=== PATIENT | female | born 1945 | race Caucasian/White ===

== ENCOUNTER → 2017-05-07 | Outpatient (CLI) | payer MEDICARE, OTHER ==
[~2017-05-07] MED LIST: ACUPRIL PO; BELLTAB15 PO; CHOL10006 PO; EZET10TA38 PO; FOLI1TAB6 PO; LEVO50TA53 PO; OMEGA 3 PO; OYST500T29 PO; TRAM50TA2 PO; VITAMIN PO
== END | disposition home or self-care (01) ==
LOC: Rad HDHVI 11:16
PROVIDERS: ATTEND Internal Medicine Cardiovascular Disease
DX: I82.403 Acute embolism and thrombosis of unspecified deep veins of lower extremity, bilateral (principal)
CPT/HCPCS: 93970

== ENCOUNTER → 2017-07-02 | Outpatient (CLI) | payer MEDICARE, OTHER ==
[2017-07-02 12:12] LABS: Urine Bilirubin Negative (Negative); Urine Blood Negative /uL (Negative); Urine Color Yellow (Yellow); Urine Glucose Normal (Normal); Urine Ketone Negative (Negative); Urine Nitrite Negative (Negative); Urine Urobilinogen Normal (Negative)
[2017-07-02 12:44] LABS: Albumin 3.9 g/dL (3.4-5.0); Alkaline Phosphatase 78 U/L (45-117); Anion Gap 14 (5-15); Aspartate Aminotransferase 22 U/L (15-37); BUN/Creatinine Ratio 23.3; Bilirubin, Direct < 0.1 mg/dL (0-0.2); Bilirubin, Total 0.3 mg/dL (0.2-1.0); Blood Urea Nitrogen 24 mg/dL (7-18); Calcium 9.8 mg/dL (8.5-10.1); Carbon Dioxide 28 mmol/L (21-32); Chloride 103 mmol/L (98-107); Cholesterol 133 mg/dL (< 200); GFR African American 68 mL/min; GFR Non-African American 56 mL/min; Glucose 119 mg/dL (74-106); HDL Cholesterol 39 mg/dL (40-59); LDL Cholesterol 84 mg/dL (< 100); Sodium 145 mmol/L (136-145); Total Protein 7.8 g/dL (6.4-8.2); Triglycerides 149 mg/dL (< 150)
[2017-07-02 12:47] LABS: Basophils # (auto) 0 uL; Basophils % (auto) 0.4 % (0.0-2.0); CONDITION Y; Eosinophils # (auto) 0.2 uL; Eosinophils % (auto) 2.4 % (0.0-7.0); Hemoglobin 15.1 g/dL (12.2-16.2); Lymphocytes # (auto) 1.8 uL; Lymphocytes % (auto) 22.2 % (10.0-50.0); Mean Corpuscular Hemoglobin 31.4 pg (28.0-32.0); Mean Corpuscular Hgb Conc. 33.6 g/dL (32.0-36.0); Mean Corpuscular Volume 93.3 fL (80.0-100.0); Mean Platelet Volume 10.4 fL (7.4-10.4); Monocytes # (auto) 0.5 uL; Monocytes % (auto) 6.6 % (0.0-12.0); Neutrophils # (auto) 5.7 uL; Neutrophils % (auto) 68.4 % (37.0-80.0); Platelet Count (auto) 216 10^3/uL (140-450); Red Cell Distribution Width 14.3 % (11.6-16.0); White Blood Cell 8.3 10^3/uL (4.4-10.8)
[2017-07-02 14:12] LABS: Potassium 5.7 mmol/L (3.5-5.1)
== END | disposition home or self-care (01) ==
LOC: LAB 08:35
PROVIDERS: ATTEND Internal Medicine Cardiovascular Disease
DX: I10 Essential (primary) hypertension (principal); E78.00 Pure hypercholesterolemia, unspecified; K74.1 Hepatic sclerosis; E11.9 Type 2 diabetes mellitus without complications; E03.9 Hypothyroidism, unspecified; D64.9 Anemia, unspecified; E55.9 Vitamin D deficiency, unspecified; N39.0 Urinary tract infection, site not specified
CPT/HCPCS: 36415; 80048; 80061; 80076; 81003; 82306; 83036; 84443; 85025; 87086

== ENCOUNTER → 2017-07-03 | Outpatient (CLI) | payer MEDICARE, OTHER ==
[~2017-07-03] VITALS: Ht 33 cm; Wt 0.5 kg
[~2017-07-03] MED LIST changes: +SODIUM POLYSTYRENE SULF 15GM/60ML SUSP ONE; +SODIUM POLYSTYRENE SULF 15GM/60ML SUSP PO ONE
[2017-07-03 09:00] VITALS: BP 148/56
[2017-07-03 10:25] VITALS: BP 141/67
== END | disposition home or self-care (01) ==
LOC: LAB 08:17
PROVIDERS: ATTEND Internal Medicine Cardiovascular Disease
DX: E87.5 Hyperkalemia (principal)
CPT/HCPCS: 36415; 84132; G0463

== ENCOUNTER → 2017-07-05 | Outpatient (CLI) | payer MEDICARE, OTHER ==
[~2017-07-05] MED LIST changes: -SODIUM POLYSTYRENE SULF 15GM/60ML SUSP ONE; -SODIUM POLYSTYRENE SULF 15GM/60ML SUSP PO ONE
[2017-07-05 08:10] VITALS: BP 143/72
[2017-07-05 10:15] VITALS: BP 135/75
== END | disposition home or self-care (01) ==
LOC: CHF HDHVI 08:09
PROVIDERS: ATTEND Internal Medicine Cardiovascular Disease
DX: E87.5 Hyperkalemia (principal)
CPT/HCPCS: 36415; 84132; G0463

== ENCOUNTER → 2017-07-09 | Outpatient (CLI) | payer MEDICARE, OTHER ==
[2017-07-09 10:25] VITALS: BP 123/66
[2017-07-09 10:45] VITALS: BP 123/66
== END | disposition home or self-care (01) ==
LOC: CHF HDHVI 10:45
PROVIDERS: ATTEND Internal Medicine Cardiovascular Disease
DX: E78.5 Hyperlipidemia, unspecified (principal); I11.0 Hypertensive heart disease with heart failure; I50.9 Heart failure, unspecified; N39.0 Urinary tract infection, site not specified
CPT/HCPCS: 36415; 84132; G0463

== ENCOUNTER → 2017-08-16 | Outpatient (CLI) | payer MEDICARE, OTHER ==
[2017-08-16 13:20] LABS: BUN/Creatinine Ratio 23.2; Potassium 3.9 mmol/L (3.5-5.1)
== END | disposition home or self-care (01) ==
LOC: LAB 08:52
PROVIDERS: ATTEND Internal Medicine Cardiovascular Disease
DX: I10 Essential (primary) hypertension (principal)
CPT/HCPCS: 36415; 80048

== ENCOUNTER → 2017-12-03 | Outpatient (CLI) | payer MEDICARE, OTHER ==
[~2017-12-03] MED LIST changes: -BELLTAB15 PO; +PHEN-913 PO
[2017-12-03 16:46] LABS: Basophils # (auto) 0 uL; Basophils % (auto) 0.2 % (0.0-2.0); Eosinophils # (auto) 0.2 uL; Eosinophils % (auto) 2.1 % (0.0-7.0); Hematocrit 45.2 % (36.0-46.0); Hemoglobin 15.5 g/dL (12.2-16.2); Lymphocytes % (auto) 19.3 % (10.0-50.0); Mean Corpuscular Hgb Conc. 34.3 g/dL (32.0-36.0); Mean Corpuscular Volume 93.4 fL (80.0-100.0); Monocytes # (auto) 0.7 uL; Monocytes % (auto) 6.9 % (0.0-12.0); Neutrophils # (auto) 7.3 uL; Neutrophils % (auto) 71.5 % (37.0-80.0); Nucleated Red Blood Cells % 0.1 %; Platelet Count (auto) 203 10^3/uL (140-450); Red Blood Cells 4.84 10^6/uL (4.0-5.20); Red Cell Distribution Width 13.5 % (11.8-14.3); White Blood Cell 10.2 10^3/uL (4.4-10.8)
[2017-12-03 16:57] LABS: BUN/Creatinine Ratio 28.2; Potassium 3.9 mmol/L (3.5-5.1)
[2017-12-03 16:58] LABS: Calcium 9.3 mg/dL (8.5-10.1)
== END | disposition home or self-care (01) ==
LOC: LAB 15:20
PROVIDERS: ATTEND Internal Medicine Cardiovascular Disease
DX: D64.9 Anemia, unspecified (principal); D59.1 Other autoimmune hemolytic anemias; I10 Essential (primary) hypertension; E03.9 Hypothyroidism, unspecified; M05.9 Rheumatoid arthritis with rheumatoid factor, unspecified
CPT/HCPCS: 36415; 80048; 84443; 85025; 86038; 86431

== ENCOUNTER 2018-12-21 13:51 | Inpatient (IN) | payer MEDICARE, OTHER ==
[~2018-12-21] VITALS: Ht 157.5 cm; Wt 85.9 kg
[2018-12-21] MEDS ORDERED: ASPirin 81 mg TAB PO ONE (14:15)
[2018-12-21] MEDS ORDERED: SODIUM CHLORIDE 0.9% 1,000 ML IVB ONE (14:41)
[2018-12-21] MEDS ORDERED: cefTRIAXone 1GM/50ML D5W 50 ML IV ONE (14:45)
[2018-12-21 15:49] LABS: INR 0.98 (0.9-1.15); Partial Thromboplastin Time 27.1 sec (23.78-33.04); Prothrombin Time 10.5 sec (9.27-12.13)
[2018-12-21 16:01] LABS: Alanine Aminotransferase 96 U/L (13-56); Albumin 3.7 g/dL (3.4-5.0); Anion Gap 10 (5-15); Aspartate Aminotransferase 183 U/L (15-37); BUN/Creatinine Ratio 22.9; Blood Urea Nitrogen 19 mg/dL (7-18); Calcium 8.5 mg/dL (8.5-10.1); Carbon Dioxide 24 mmol/L (21-32); Chloride 104 mmol/L (98-107); GFR African American 86 mL/min; GFR Non-African American 71 mL/min; Glucose 129 mg/dL (74-106); Potassium 3.6 mmol/L (3.5-5.1); Sodium 138 mmol/L (136-145)
[2018-12-21 16:06] LABS: Alkaline Phosphatase 128 U/L (45-117); Bilirubin, Total 0.9 mg/dL (0.2-1.0); Total Protein 7.5 g/dL (6.4-8.2)
[2018-12-21 16:23] LABS: Basophils # (auto) 0 uL; Basophils % (auto) 0.2 % (0.0-2.0); Eosinophils # (auto) 0.1 uL; Eosinophils % (auto) 0.8 % (0.0-7.0); Hematocrit 42.9 % (36.0-46.0); Hemoglobin 14.8 g/dL (12.2-16.2); Lymphocytes # (auto) 1.4 uL; Lymphocytes % (auto) 15.4 % (10.0-50.0); Mean Corpuscular Hemoglobin 31.2 pg (28.0-32.0); Mean Corpuscular Hgb Conc. 34.5 g/dL (32.0-36.0); Mean Corpuscular Volume 90.4 fL (80.0-100.0); Monocytes # (auto) 0.8 uL; Monocytes % (auto) 8.8 % (0.0-12.0); Neutrophils # (auto) 6.8 uL; Neutrophils % (auto) 74.8 % (37.0-80.0); Platelet Count (auto) 208 10^3/uL (140-450); Red Blood Cells 4.74 10^6/uL (4.0-5.20); Red Cell Distribution Width 13.5 % (11.8-14.3); White Blood Cell 9.2 10^3/uL (4.4-10.8)
[2018-12-21] MEDS ORDERED: traMADol HCL 50 MG TAB PO PRN (17:00)
[2018-12-21] MEDS ORDERED: MORPHINE SULFATE 4 MG/ML SYR/VIAL IV PRN (17:00)
[2018-12-21] MEDS ORDERED: TEMAZEPAM 15 MG CAP PO PRN (17:00)
[2018-12-21] MEDS ORDERED: PROMETHAZINE HCL 25 MG/ML 1ML IV PRN (17:00)
[2018-12-21] MEDS ORDERED: LACTULOSE 20Gm/30ML SOLN PO PRN (17:00)
[2018-12-21] MEDS ORDERED: OSELTAMIVIR 30 MG CAP PO ONE (17:00)
[2018-12-21] MEDS ORDERED: NITROGLYCERIN 0.4 MG SL TAB SL PRN (17:00)
[2018-12-21] MEDS ORDERED: ALBUTEROL SULF 2.5 MG/0.5ML(0.5%) NEB SOLN NEB PRN (17:00)
[2018-12-21] MEDS ORDERED: LORazepam 0.5 MG TAB PO PRN (17:00)
[2018-12-21] MEDS ORDERED: AZITHROMYCIN 500MG/ 250ML 250 ML IV ONE (17:15)
[2018-12-21] MEDS: ALBUTEROL SULF 2.5 MG/0.5ML(0.5%) NEB SOLN NEB SCH (18:36)
[2018-12-21] MEDS: SODIUM CHLORIDE 0.9% 1,000 ML IV SCH (19:32)
[2018-12-21 20:27] VITALS: BP 138/69
--- NOTE | 2018-12-21 20:55 | NUR ---
Telemetry admit from ER JOSE M MELARA admitted to Telemetry unit after SBAR received. Patient oriented to GWENDOLYN MCQUEEN RN primary RN, unit, room, bed, and unit policies regarding patient care and visiting hours. Patient now on continuous telemetry monitoring, tele box # [id number] and telemetry reading on arrival to unit is SR. Patient placed on bedside oxygen, weighed by bedscale and encouraged to call if they need something. All questions and concerns addressed, patient verbalized understanding. Note:
[2018-12-21 21:33] LABS: Urine Bacteria NONE SEEN /hpf (None Seen); Urine Blood 1+ /uL (Negative); Urine WBC 4179 /hpf (0 - 5); Urine WBC Clumps PRESENT /hpf (None Seen)
[2018-12-21 22:00] VITALS: BP 105/62
[2018-12-21 22:17] VITALS: BP 105/65
[2018-12-22] MEDS: ALBUTEROL SULF 2.5 MG/0.5ML(0.5%) NEB SOLN NEB SCH ×4 (01:30→18:05)
[2018-12-22] MEDS ORDERED: ACET-1158 PO (04:42)
[2018-12-22] MEDS ORDERED: LEVEMIR SC (04:42)
[2018-12-22] MEDS ORDERED: FLUO0.05 EX (04:43)
[2018-12-22] MEDS ORDERED: ESOM40CA39 PO ×2 (04:43)
[2018-12-22] MEDS ORDERED: PRO625LQ GT (04:43)
[2018-12-22] MEDS ORDERED: DICL1GEL26 TOP (04:43)
[2018-12-22] MEDS ORDERED: METF-370 PO (04:43)
[2018-12-22] MEDS ORDERED: NATE60TA5 PO (04:43)
[2018-12-22] MEDS ORDERED: ASP81EC PO (04:43)
[2018-12-22] MEDS ORDERED: GLIM1TAB2 PO (04:43)
[2018-12-22] MEDS ORDERED: IBUP600T27 PO (04:43)
[2018-12-22 05:09] VITALS: BP 129/63
[2018-12-22] MEDS: SODIUM CHLORIDE 0.9% 1,000 ML IV SCH (05:17)
[2018-12-22] MEDS: LEVOTHYROXINE SODIUM 50 MCG TAB PO SCH (05:17)
[2018-12-22 06:01] LABS: Calcium 7.9 mg/dL (8.5-10.1); Potassium 3.6 mmol/L (3.5-5.1)
[2018-12-22 06:03] LABS: BUN/Creatinine Ratio 23.8
[2018-12-22 06:06] LABS: Bilirubin, Total 0.4 mg/dL (0.2-1.0)
--- NOTE | 2018-12-22 07:05 | NUR ---
OPENING SHIFT NOTE ASSUMED CARE OF PATIENT FROM LINING SEWER JAYDEN CORADO. PATIENT IS AWAKE AND ALERT X2 (PERSON AND PLACE). WILL CONTINUE TO REORIENT PATIENT TO DATE, TIME AND SITUATION. INSTRUCTED PATIENT ON POC, PATIENT VERBALIZED UNDERSTANDING. PATIENT HAS NO S/S OF DISTRESS/SOB OR PAIN. BED IS IN LOWEST POSITION WITH SIDE RAILS RAISED X2, BED WHEELS LOCKED, CALL LIGHT WITHIN REACH, AND BED ALARM ON. WILL CONTINUE TO MONITOR Addendum: 12/22/18 at 1907 by Rimma Cervantes RN RN WRONG PATIENT
--- NOTE | 2018-12-22 07:10 | NUR ---
OPENING SHIFT NOTE ASSUMED CARE OF PATIENT FROM CLOUD SYSTEMS ADMINISTRATOR RN GWENDOLYN. PATIENT IS AWAKE AND ALERT X4. PATIENT HAS NO S/S OF DISTRESS/SOB OR PAIN. INSTRUCTED PATIENT ON POC, PATIENT VERBALIZED UNDERSTANDING. BED IS IN LOWEST POSITION WITH SIDE RAILS RAISED X2, BED WHEELS LOCKED AND CALL LIGHT WITHIN REACH. WILL CONTINUE TO MONITOR
[2018-12-22 08:05] VITALS: BP 134/71
[2018-12-22 09:00] VITALS: BP 134/71
[2018-12-22] MEDS ORDERED: cefTRIAXone 1GM/50ML D5W 50 ML IV SCH (09:00)
[2018-12-22] MEDS: PANTOPRAZOLE 40 MG TAB PO SCH (09:36)
[2018-12-22] MEDS: CHOLECALCIFEROL (VITD3) 1,000 UNIT TAB PO SCH (09:36)
[2018-12-22] MEDS: ENOXAPARIN SOD 40 MG/0.4 ML SYRINGE SC SCH (09:36)
[2018-12-22] MEDS ORDERED: EZETIMIBE SIMVASTATIN PO SCH (10:00)
[2018-12-22] MEDS: HYOSCYAMINE SULF SL SCH ×2 (10:00→21:54)
[2018-12-22] MEDS ORDERED: OSELTAMIVIR 30 MG CAP PO SCH (10:00)
[2018-12-22] MEDS: QUINAPRIL 20 MG PO SCH (10:00)
--- NOTE | 2018-12-22 10:42 | NUR ---
SPOKE WITH SON DARREN. INFORMED HIM THERE ARE TWO MEDICATIONS THAT THE PATIENT TAKE THAT WE DO NOT CARRY IN THE HOSPITAL. DARREN SAID HE WILL BRING THE MEDICATIONS IN WHEN HE VISITS TODAY
[2018-12-22 13:00] VITALS: BP 128/77
--- NOTE | 2018-12-22 16:30 | NUR ---
OXYGEN DELIVERED TO BEDSIDE. Addendum: 12/22/18 at 1909 by Rimma Cervantes RN RN WRONG PATIENT
[2018-12-22 17:00] VITALS: BP 137/69
[2018-12-22] MEDS ORDERED: AZITHROMYCIN 500MG/ 250ML 250 ML IV SCH (18:00)
--- NOTE | 2018-12-22 18:30 | NUR ---
GAVE SON NUMBER FOR TAMMY TO CALL THEM WHEN THEY GET HOME FOR OXYGEN Addendum: 12/22/18 at 1909 by Rimma Cervantes RN RN WRONG PATIENT
--- NOTE | 2018-12-22 18:48 | NUR ---
Discharge instructions given as ordered. Encourage to follow up with PMD as instructed. All questions and concerns addressed. Patient verbalized understanding. Medication reconciliation form completed and copy given to patient. IV removed with catheter intact, pressure dressing applied. Telemetry unit returned to ICU. Patient taken to vehicle via wheelchair with all personal belongings, accompanied by staff and family member. No distress noted at time of departure. Addendum: 12/22/18 at 1909 by Rimma Cervantes RN RN WRONG PATIENT
--- NOTE | 2018-12-22 19:09 | NUR ---
CLOSING SHIFT NOTE ENDORSED CARE TO PATIENT FROM PRODUCTION CONTROL COORDINATOR RN JARVIS. PATIENT HAS NO S/S OF DISTRESS/SOB OR PAIN
--- NOTE | 2018-12-22 20:02 | NUR ---
open note assumed care of pt. awake and alert upon entering room. pt denies and discomfort. no s/s distress noted. pt updated on plan of care and had no additional questions at this time. call light in reach, will continue to monitor.
[2018-12-22 22:00] VITALS: BP 130/63
[2018-12-23] MEDS: ALBUTEROL SULF 2.5 MG/0.5ML(0.5%) NEB SOLN NEB SCH ×3 (00:35→11:15)
[2018-12-23 05:00] VITALS: BP 150/74
[2018-12-23 05:55] LABS: Albumin 2.8 g/dL (3.4-5.0); Calcium 8.3 mg/dL (8.5-10.1)
[2018-12-23 06:00] LABS: Bilirubin, Total 0.3 mg/dL (0.2-1.0); Total Protein 6.1 g/dL (6.4-8.2)
[2018-12-23] MEDS: LEVOTHYROXINE SODIUM 50 MCG TAB PO SCH (06:33)
[2018-12-23 07:39] LABS: BUN/Creatinine Ratio 22.5
[2018-12-23 08:00] VITALS: BP 141/98
[2018-12-23 09:00] VITALS: BP 141/98
[2018-12-23] MEDS ORDERED: AZIT250T8 PO (09:36)
[2018-12-23] MEDS ORDERED: AMOX-263 PO (09:36)
[2018-12-23] MEDS ORDERED: LEVO-28 PO (09:42)
[2018-12-23] MEDS ORDERED: LEVOFLOXACIN 500 MG TAB PO ONE (09:45)
[2018-12-23] MEDS: ENOXAPARIN SOD 40 MG/0.4 ML SYRINGE SC SCH (09:54)
[2018-12-23] MEDS: PANTOPRAZOLE 40 MG TAB PO SCH (09:55)
[2018-12-23] MEDS: CHOLECALCIFEROL (VITD3) 1,000 UNIT TAB PO SCH (09:55)
[2018-12-23] MEDS: HYOSCYAMINE SULF SL SCH (09:58)
[2018-12-23] MEDS: QUINAPRIL 20 MG PO SCH (09:59)
[2018-12-23] MEDS ORDERED: EZETIMIBE SIMVASTATIN PO SCH (10:00)
[2018-12-23] MEDS ORDERED: ASPirin-EC 81 mg tab PO SCH (10:00)
--- NOTE | 2018-12-23 13:16 | NUR ---
Discharge instructions given as ordered to patient and son at bedside. Encourage to follow up with PMD as instructed. All questions and concerns addressed. Patient verbalized understanding. Medication reconciliation form completed and copy given to patient. Home medications held in Pharmacy returned to patient. IV removed with catheter intact, pressure dressing applied. Patient ambulated to vehicle with all personal belongings, accompanied by family member. No distress noted at time of departure.
== END 2018-12-23 13:16 | disposition home or self-care (01) | DRG 689 ==
LOC: EDBD 13:51 → ER 13:53 → TELE 16:57 → TELE-WESTW 20:54 → WEST WING 12-22 16:17
PROVIDERS: ADMIT Internal Medicine; ATTEND Internal Medicine
DX: N39.0 Urinary tract infection, site not specified (principal); J18.1 Lobar pneumonia, unspecified organism; R65.10 Systemic inflammatory response syndrome (SIRS) of non-infectious origin without acute organ dysfunction; M19.011 Primary osteoarthritis, right shoulder; I10 Essential (primary) hypertension; E78.5 Hyperlipidemia, unspecified; E03.9 Hypothyroidism, unspecified; K57.90 Diverticulosis of intestine, part unspecified, without perforation or abscess without bleeding; R73.9 Hyperglycemia, unspecified; E66.01 Morbid (severe) obesity due to excess calories; Z90.710 Acquired absence of both cervix and uterus; Z82.49 Family history of ischemic heart disease and other diseases of the circulatory system; Z90.49 Acquired absence of other specified parts of digestive tract
CPT/HCPCS: 36415; 71045; 71046; 76705; 80053; 81001; 83036; 83605; 83735; 83880; 84443; 84484; 85025; 85379; 85610; 85730; 87040; 87086; 87804; 93005; 94640; 94761; 96361; 96365; G0378; J0696

== ENCOUNTER 2019-10-14 18:12 | Inpatient (IN) | payer MEDICARE, OTHER ==
[~2019-10-14] VITALS: Ht 157.5 cm; Wt 72.5 kg
[~2019-10-14 18:12] MED LIST changes: +ACET-1158 PO; -ACUPRIL PO; +ASP81EC PO; -CHOL10006 PO; +DICL1GEL26 TOP; +ESOM40CA39 PO; -EZET10TA38 PO; +FLUO0.05 EX; -FOLI1TAB6 PO; +GLIM1TAB2 PO; +IBUP600T27 PO; +LEVEMIR SC; +LEVO-28 PO; -LEVO50TA53 PO; +METF-370 PO; +NATE60TA5 PO; -OMEGA 3 PO; -OYST500T29 PO; -PHEN-913 PO; +PRO625LQ GT; -TRAM50TA2 PO; -VITAMIN PO
[2019-10-14 19:15] LABS: Basophils # (auto) 0.1 uL; Basophils % (auto) 0.3 % (0.0-2.0); Eosinophils # (auto) 0.1 uL; Eosinophils % (auto) 0.6 % (0.0-7.0); Hematocrit 38.7 % (36.0-46.0); Lymphocytes # (auto) 1.8 uL; Lymphocytes % (auto) 8.2 % (10.0-50.0); Mean Corpuscular Hemoglobin 31.4 pg (28.0-32.0); Mean Corpuscular Hgb Conc. 33.6 g/dL (32.0-36.0); Mean Corpuscular Volume 93.4 fL (80.0-100.0); Monocytes # (auto) 1.6 uL; Monocytes % (auto) 7.2 % (0.0-12.0); Neutrophils # (auto) 18.4 uL; Neutrophils % (auto) 83.7 % (37.0-80.0); Nucleated Red Blood Cells % 0.1 %; Platelet Count (auto) 244 10^3/uL (140-450); Red Blood Cells 4.15 10^6/uL (4.0-5.20); Red Cell Distribution Width 15.4 % (11.8-14.3)
[2019-10-14 19:28] LABS: Albumin 3.9 g/dL (3.4-5.0); Calcium 9.1 mg/dL (8.5-10.1); Potassium 3.8 mmol/L (3.5-5.1)
[2019-10-14 19:30] LABS: BUN/Creatinine Ratio 18.3; Bilirubin, Total 0.5 mg/dL (0.2-1.0); Total Protein 7.4 g/dL (6.4-8.2)
[2019-10-14] MEDS ORDERED: ONDANSETRON HCL 4 MG/2 ML VIAL IV ONE ×2 (20:30→21:00)
[2019-10-14] MEDS ORDERED: SODIUM CHLORIDE 0.9% 1,000 ML IV ONE (20:30)
[2019-10-14] MEDS ORDERED: VANCOMYCIN PER PHARMACY 0 MG IV SCH (20:30)
[2019-10-14 20:43] LABS: Urine Bacteria FEW /hpf (None Seen); Urine Blood 1+ /uL (Negative); Urine Specific Gravity 1.008 (1.001-1.035); Urine WBC 318 /hpf (0 - 5); Urine WBC Clumps PRESENT /hpf (None Seen)
[2019-10-14] MEDS ORDERED: VANCOMYCIN 1GM/250ML 250 ML IV SCH (21:00)
[2019-10-14] MEDS ORDERED: MORPHINE SULFATE 4 MG/ML SYR/VIAL IV ONE (21:00)
[2019-10-14 21:23] LABS: Lactic Acid w/Reflex 2.4 mmol/L (0.4-2.0)
[2019-10-14] MEDS ORDERED: DOCUSATE SOD 100 MG CAP PO PRN (21:30)
[2019-10-14] MEDS ORDERED: SODIUM CHLORIDE 0.9% 500 ML IV ONE (21:30)
[2019-10-14] MEDS ORDERED: ERTAPENEM SOD INJ 1 GM in SODIUM CHL 0.9% 50 ML IV ONE (21:30)
[2019-10-14] MEDS ORDERED: HYDROcodone-ACET 5/325MG TAB PO PRN (21:30)
[2019-10-14] MEDS ORDERED: ACETAMINOPHEN 325 MG TAB PO PRN (21:30)
[2019-10-14] MEDS ORDERED: TEMAZEPAM 15 MG CAP PO PRN (21:30)
[2019-10-14] MEDS: SODIUM CHLORIDE 0.9% 1,000 ML IV SCH (21:30)
[2019-10-14] MEDS ORDERED: ONDANSETRON HCL 4 MG/2 ML VIAL IV PRN (21:30)
[2019-10-14] MEDS ORDERED: DEXTROSE (50%) 50ML SYRG IV PRN (21:30)
--- NOTE | 2019-10-14 23:20 | NUR ---
MS admit from [facility] admitted to tele/MS after SBAR received. Patient oriented to ROME MOON, RN primary RN, unit, room, bed, and unit policies regarding patient care and visiting hours. Patient weighed by bedscale and encouraged to call if they need something. All questions and concerns addressed, patient verbalized understanding.
--- NOTE | 2019-10-14 23:20 | NUR ---
RN provided teaching to patient about hospital policy on using depends. RN included teaching on risk for skin breakdown and risk for infection related to use of depends. Patient verbalized understanding, but proceeded to verbalize that she prefers to use depends. RN will monitor patient for incontinence Q hour and PRN. Patient also stated she will notify RN of incontinence episodes
[2019-10-15] MEDS: ACCU-CHEK COMFORT CURVE STRIP VI SCH ×5 (00:11→23:44)
[2019-10-15] MEDS: InsuLIN REG 1unit/0.01ml Soln (100units/ml) SC SCH ×5 (00:11→23:45)
[2019-10-15 04:43] VITALS: BP 124/63
[2019-10-15 06:33] LABS: Basophils # (auto) 0 uL; Basophils % (auto) 0.2 % (0.0-2.0); Eosinophils # (auto) 0 uL; Eosinophils % (auto) 0.4 % (0.0-7.0); Hematocrit 32.8 % (36.0-46.0); Hemoglobin 11.3 g/dL (12.2-16.2); Lymphocytes # (auto) 1.2 uL; Lymphocytes % (auto) 12.7 % (10.0-50.0); Mean Corpuscular Hemoglobin 32.3 pg (28.0-32.0); Mean Corpuscular Hgb Conc. 34.5 g/dL (32.0-36.0); Mean Corpuscular Volume 93.5 fL (80.0-100.0); Monocytes % (auto) 10.1 % (0.0-12.0); Neutrophils # (auto) 7.4 uL; Neutrophils % (auto) 76.6 % (37.0-80.0); Platelet Count (auto) 172 10^3/uL (140-450); Red Cell Distribution Width 14.8 % (11.8-14.3); White Blood Cell 9.6 10^3/uL (4.4-10.8)
[2019-10-15 06:48] LABS: BUN/Creatinine Ratio 17.5; Calcium 8.4 mg/dL (8.5-10.1); Potassium 4.2 mmol/L (3.5-5.1)
--- NOTE | 2019-10-15 07:55 | NUR ---
Opening Note Assumed pt care from [facility] nurse. Pt is a/ox4 with no s/s of distress or SOB. Pt is currently laying in bed with no complaints at this time. Discussed POC with pt; pt verbalized understanding. Discussed pending urology consult with pt. Safety measures maintained with call light within reach, bed in lowest position and side rails up. Will continue to monitor for changes q1hr and prn.
[2019-10-15 09:00] VITALS: BP 117/62
[2019-10-15] MEDS ORDERED: ERTAPENEM SOD INJ 1 GM in SODIUM CHL 0.9% 50 ML IV SCH (10:00)
--- NOTE | 2019-10-15 10:19 | NUR ---
Insertion of Rose Catheter 14 [place] rose catheter inserted using sterile technique per the request of Dr Bullock. Pt tolerated insertion well. Bright yellow urine noted upon insertion of catheter. Rose bag is hanging low and draining with gravity. Will continue to monitor.
[2019-10-15] MEDS: PANTOPRAZOLE 40 MG TAB PO SCH (10:40)
[2019-10-15] MEDS: cefTRIAXone 1GM/50ML D5W 50 ML IV SCH (10:44)
[2019-10-15] MEDS: SODIUM CHLORIDE 0.9% 1,000 ML IV SCH ×2 (10:50→23:44)
--- NOTE | 2019-10-15 12:12 | NUR ---
Dr Bullock At Bedside Spoke with pt regarding POC. Stated that pt had urinary retention and would need to keep the rose catheter in for a week to allow bladder to heal. Requested that an Renal Ultrasound be done to see if retention fully resolved. Plans for possibly discharge pt home soon with rose catheter. Will implement and follow through.
--- NOTE | 2019-10-15 12:29 | NUR ---
Rose Catheter Emptied 450 mL of urine emptied from rose catheter. Urine is bright-yellow to dark orange in color, mild sediment noted in urine and no odor present. Will continue to monitor.
[2019-10-15 13:00] VITALS: BP 106/55
[2019-10-15] MEDS ORDERED: ALBUTEROL SULF 2.5 MG/0.5ML(0.5%) NEB SOLN NEB PRN (15:15)
[2019-10-15 15:28] VITALS: BP 117/62
--- NOTE | 2019-10-15 16:10 | NUR ---
Mild Amount of Sediment Noted in Koo Pt c/o of "feeling like catheter is leaking". Assessed catheter, no leaking noted. Did note a mild amount of sediment present in the tubing as well as bag. Irrigated the catheter with Normal saline. Catheter is still patent and draining to gravity. Will continue to monitor patency of catheter and presence of sediment.
[2019-10-15 18:23] VITALS: BP 135/64
--- NOTE | 2019-10-15 19:00 | NUR ---
Opening Shift Note Assumed care of patient, awake and alert. No S/S of distress/SOB or pain. Instructed on POC and to call for assist PRN, will continue to monitor for changes Q1hr and PRN.
[2019-10-15 22:00] VITALS: BP 117/59
--- NOTE | 2019-10-16 01:07 | NUR ---
RT NOTE PT WAS SEEN BY RT FOR PRN HHN TX ASSESSMENT. PT IS SLEEPING WITHOUT SOB OR DISTRESS. HR 63, RR 16, BS CLEAR, POX 92% ON ROOM AIR. NO PRN TX INDICATED AT THIS TIME. CONT ORDERED Addendum: 10/16/19 at 0222 by Lucina Gastelum RT Amended: Links added.
[2019-10-16 05:00] VITALS: BP 128/73
[2019-10-16] MEDS: ACCU-CHEK COMFORT CURVE STRIP VI SCH ×4 (05:47→23:43)
[2019-10-16] MEDS: InsuLIN REG 1unit/0.01ml Soln (100units/ml) SC SCH ×4 (05:47→23:43)
[2019-10-16] MEDS: LEVOTHYROXINE SODIUM 50 MCG TAB PO SCH (06:37)
[2019-10-16 07:08] LABS: BUN/Creatinine Ratio 19.8; Calcium 8.4 mg/dL (8.5-10.1); Potassium 3.9 mmol/L (3.5-5.1)
--- NOTE | 2019-10-16 07:20 | NUR ---
Opening Shift Note Report received and rounding completed. Patient observed awake, alert, and without S/S of distress noted. Patient oriented to this RN and POC. Call farris within reach and understands to call if needing assistance.
[2019-10-16 09:00] VITALS: BP 136/57
[2019-10-16 09:21] LABS: Basophils # (auto) 0 uL; Basophils % (auto) 0.4 % (0.0-2.0); Eosinophils # (auto) 0.3 uL; Hematocrit 32.2 % (36.0-46.0); Hemoglobin 10.9 g/dL (12.2-16.2); Lymphocytes # (auto) 1.2 uL; Lymphocytes % (auto) 15.9 % (10.0-50.0); Mean Corpuscular Hemoglobin 32.2 pg (28.0-32.0); Mean Corpuscular Hgb Conc. 33.9 g/dL (32.0-36.0); Mean Corpuscular Volume 94.8 fL (80.0-100.0); Monocytes # (auto) 0.6 uL; Monocytes % (auto) 8.1 % (0.0-12.0); Neutrophils # (auto) 5.5 uL; Neutrophils % (auto) 71.6 % (37.0-80.0); Nucleated Red Blood Cells % 0.1 %; Platelet Count (auto) 152 10^3/uL (140-450); Red Cell Distribution Width 14.9 % (11.8-14.3); White Blood Cell 7.6 10^3/uL (4.4-10.8)
[2019-10-16] MEDS: PANTOPRAZOLE 40 MG TAB PO SCH (09:56)
[2019-10-16] MEDS: LISINOPRIL 20 MG TAB PO SCH (09:57)
[2019-10-16] MEDS ORDERED: VANCOMYCIN 1GM/250ML 250 ML IV SCH (10:00)
[2019-10-16] MEDS: cefTRIAXone 1GM/50ML D5W 50 ML IV SCH (11:16)
[2019-10-16 13:00] VITALS: BP 120/63
--- NOTE | 2019-10-16 13:10 | NUR ---
ASSESSED PT FOR MED NEB PRN BREATHING TX, PT ON RA WITH SPO2 97%, HR 77, RR 15 WITH CLEAR BS. PT IN NO DISTRESS. MED NEB NOT INDICATED. PT MADE AWARE OF PRN MED NEB
[2019-10-16] MEDS: SODIUM CHLORIDE 0.9% 1,000 ML IV SCH (13:30)
--- NOTE | 2019-10-16 15:27 | NUR ---
assessment Patient is a 74 year old female who is alert and oriented. Patients cognitive abilities are intact. Prior to admission patient lived home with family and functioned with assistance. Per patient she will return home to her prior living arrangements post discharge and family will transport her home. Patient has a fww and a rollator for home use. I informed patient she has a consult for home health for safety, and rose care. Patient has been given a list of medicare providers. Patient has signed choice letter for [facility]. MD order sent to [facility]. Per Shanelle at [facility] service will start on 10/18/19. Patient has been notified. I informed patient she has a right to speak to a social problems specialist regarding all care. I informed patient she has a right to participate in any and all discharge planning. Patient does not have a POA and advanced directive. I have offered patient information on POA and advanced directives. I informed the patient the advantages and benefits of having an Advanced Directive. Patient verbalized understanding and agreed to discharge plan. Addendum: 10/16/19 at 1530 by Kayla HOLCOMB Amended: Links added.
[2019-10-16 17:00] VITALS: BP 131/75
--- NOTE | 2019-10-16 18:18 | NUR ---
RT NOTE PT WAS SEEN BY RT FOR PRN HHN ASSESSMENT. PT IS AWAKE AND ALERT AND IS GETTING READY TO SIT IN CHAIR AT BEDSIDE WITH RN ASSISTANCE. PT STATES SHE IS BREATHING WELL AND NO TREATMENT IS NEEDED AT THIS TIME. PT STATES SHE IS AWARE THAT THEY ARE AVAILABLE TO HER AND TO JUST CALL THE NURSE IF ONE IS NEEDED. HR 84, RR 16, BS CTA, POX 96% ON ROOM AIR. NO PRN TX INDICATED NOR GIVEN AT THIS TIME. CONT PRN ORDERED Addendum: 10/16/19 at 1845 by Lucina Gastelum RT Amended: Links added.
[2019-10-16 22:00] VITALS: BP 121/67
[2019-10-17] MEDS: SODIUM CHLORIDE 0.9% 1,000 ML IV SCH (02:50)
[2019-10-17 04:26] VITALS: BP 123/64
[2019-10-17] MEDS: InsuLIN REG 1unit/0.01ml Soln (100units/ml) SC SCH (06:00)
--- NOTE | 2019-10-17 06:00 | NUR ---
Respiratory note: PRN MED NEB TX NOT INDICATED AT THIS TIME. HR 69, RR 14, SPO2 92% ON RA, BS CLEAR. PT INFORMED TO HIT CALL BUTTON IF FELLING SOB OR WHEEZING. RN STUDENT AT BEDSIDE. NO SIGNS OR SYMPTOMS OF RESPIRATORY DISTRESS NOTED.
[2019-10-17] MEDS: ACCU-CHEK COMFORT CURVE STRIP VI SCH (06:16)
[2019-10-17] MEDS: LEVOTHYROXINE SODIUM 50 MCG TAB PO SCH (06:34)
--- NOTE | 2019-10-17 07:50 | NUR ---
Opening Shift Note Assumed care of patient, awake and alert, sitting up in bed. No S/S of distress/SOB or pain. Instructed on POC and to call for assist PRN, will continue to monitor for changes Q1hr and PRN.
[2019-10-17] MEDS ORDERED: CEPH-37 PO (08:30)
[2019-10-17] MEDS: PANTOPRAZOLE 40 MG TAB PO SCH (09:01)
[2019-10-17] MEDS: LISINOPRIL 20 MG TAB PO SCH (09:02)
[2019-10-17] MEDS: cefTRIAXone 1GM/50ML D5W 50 ML IV SCH (09:02)
[2019-10-17 09:12] VITALS: BP 128/66
--- NOTE | 2019-10-17 09:30 | NUR ---
Koo Catheter Changed drainage bag to leg bag for home.
--- NOTE | 2019-10-17 10:30 | NUR ---
Family members at bedside.
--- NOTE | 2019-10-17 10:45 | NUR ---
Discharge Pictures Discharge picture taken.
--- NOTE | 2019-10-17 10:54 | NUR ---
Discharge instructions given as ordered. Encourage to follow up with PMD as instructed. All questions and concerns addressed. Patient verbalized understanding. Medication reconciliation form completed and copy given to patient. Patient instructed to picker operator prescribed medications at pharmacy. IV removed with catheter intact and pressure dressing applied. Patient taken to vehicle via wheelchair with all personal belongings, accompanied by staff and family member. No distress noted at time of departure. Koo catheter left in place as ordered.
== END 2019-10-17 10:55 | disposition home health service (06) | DRG 690 ==
LOC: ER 18:12 → OVERFLOW 18:13 → EAST 23:45
PROVIDERS: ADMIT Nurse Practitioner; ATTEND Internal Medicine
DX: N13.6 Pyonephrosis (principal); R65.10 Systemic inflammatory response syndrome (SIRS) of non-infectious origin without acute organ dysfunction; G89.18 Other acute postprocedural pain; N17.0 Acute kidney failure with tubular necrosis; D72.829 Elevated white blood cell count, unspecified; E11.65 Type 2 diabetes mellitus with hyperglycemia; E78.5 Hyperlipidemia, unspecified; J45.909 Unspecified asthma, uncomplicated; K57.90 Diverticulosis of intestine, part unspecified, without perforation or abscess without bleeding; Z82.49 Family history of ischemic heart disease and other diseases of the circulatory system; Z90.710 Acquired absence of both cervix and uterus; Z90.49 Acquired absence of other specified parts of digestive tract
CPT/HCPCS: 36415; 74176; 76775; 80048; 80053; 81001; 82150; 82962; 83036; 83605; 83690; 83880; 85025; 87040; 87081; 87086; 96361; 96365; 96375; 97163; G0378; J0696; J1335; J1815; J2405

== ENCOUNTER 2019-12-15 11:24 | Emergency (ER) | payer MEDICARE, OTHER ==
[~2019-12-15] VITALS: Ht 162.6 cm; Wt 76.2 kg
[~2019-12-15 11:24] MED LIST changes: +CEPH-37 PO; -GLIM1TAB2 PO; +GLIM1TAB3 PO
[2019-12-15 12:14] LABS: Basophils # (auto) 0.1 uL; Basophils % (auto) 0.4 % (0.0-2.0); Eosinophils # (auto) 0.1 uL; Eosinophils % (auto) 0.4 % (0.0-7.0); Hematocrit 44.5 % (36.0-46.0); Hemoglobin 14.9 g/dL (12.2-16.2); Lymphocytes # (auto) 1.9 uL; Lymphocytes % (auto) 13.6 % (10.0-50.0); Mean Corpuscular Hemoglobin 30.6 pg (28.0-32.0); Mean Corpuscular Hgb Conc. 33.4 g/dL (32.0-36.0); Mean Corpuscular Volume 91.7 fL (80.0-100.0); Monocytes # (auto) 1.5 uL; Monocytes % (auto) 10.4 % (0.0-12.0); Neutrophils # (auto) 10.7 uL; Neutrophils % (auto) 75.2 % (37.0-80.0); Nucleated Red Blood Cells % 0.1 %; Platelet Count (auto) 224 10^3/uL (140-450); Red Blood Cells 4.86 10^6/uL (4.0-5.20); Red Cell Distribution Width 13.5 % (11.8-14.3); White Blood Cell 14.2 10^3/uL (4.4-10.8)
[2019-12-15 12:30] LABS: Albumin 3.7 g/dL (3.4-5.0); Calcium 9.6 mg/dL (8.5-10.1)
[2019-12-15 12:33] LABS: BUN/Creatinine Ratio 23.4; Bilirubin, Total 0.6 mg/dL (0.2-1.0); Total Protein 8.3 g/dL (6.4-8.2)
[2019-12-15 13:24] LABS: Urine Bacteria MOD /hpf (None Seen); Urine Blood 1+ /uL (Negative); Urine Specific Gravity 1.013 (1.001-1.035); Urine WBC 510 /hpf (0 - 5); Urine WBC Clumps PRESENT /hpf (None Seen)
[2019-12-15 14:53] VITALS: BP 127/70
== END 2019-12-15 15:01 | disposition home or self-care (01) ==
LOC: ER 11:24 → EDBD 11:24 → ER 15:01
DX: N39.0 Urinary tract infection, site not specified (principal); R33.9 Retention of urine, unspecified; J45.909 Unspecified asthma, uncomplicated; E78.5 Hyperlipidemia, unspecified; I10 Essential (primary) hypertension; E07.9 Disorder of thyroid, unspecified
CPT/HCPCS: 36415; 51702; 80053; 81001; 85025

== ENCOUNTER → 2024-01-29 | Outpatient (CLI) | payer MEDICARE, OTHER ==
[~2024-01-29] MED LIST changes: -ACET-1158 PO; +ACET500T58 PO; -ASP81EC PO; +ASPI-394 PO; -CEPH-37 PO; +CHOL100055 PO; -DICL1GEL26 TOP; -ESOM40CA39 PO; +EZET10TA24 PO; -FLUO0.05 EX; +FLUT250M2 INH; -GLIM1TAB3 PO; -IBUP600T27 PO; -LEVEMIR SC; -LEVO-28 PO; +LEVO500T31 PO; +LEVO50TA7 PO; -METF-370 PO; +MULT-1018 PO; -NATE60TA5 PO; -PRO625LQ GT; +QUIN20TA35 PO
== END | disposition home or self-care (01) ==
LOC: XYW 14:00
PROVIDERS: ATTEND Internal Medicine
DX: M79.604 Pain in right leg (principal)
CPT/HCPCS: 93925

== ENCOUNTER → 2024-03-27 | Outpatient (CLI) | payer MEDICARE, OTHER | END | disposition home or self-care (01) | LOC: LAB 08:30 | PROVIDERS: ATTEND Internal Medicine | DX: R06.02 Shortness of breath (principal) | CPT/HCPCS: 36415; 85379 ==

== ENCOUNTER → 2024-03-30 | Outpatient (CLI) | payer MEDICARE, OTHER | END | disposition home or self-care (01) | LOC: XYW 09:56 | PROVIDERS: ATTEND Internal Medicine | DX: I65.23 Occlusion and stenosis of bilateral carotid arteries (principal); R06.02 Shortness of breath | CPT/HCPCS: 93886 ==

== ENCOUNTER → 2024-07-20 | Outpatient (CLI) | payer MEDICARE, OTHER ==
[~2024-07-20] VITALS: Ht 157.5 cm; Wt 77.1 kg
[2024-07-20] MEDS: REGADENOSON 0.4 MG/5 ML SYRG IV ONE (11:48)
== END | disposition home or self-care (01) ==
LOC: XY 09:38
PROVIDERS: ATTEND Student in an Organized Health Care Education/Training Program
DX: I45.4 Nonspecific intraventricular block (principal); R06.02 Shortness of breath
CPT/HCPCS: 78452; 93017

== ENCOUNTER → 2024-08-19 | Outpatient (CLI) | payer MEDICARE, OTHER | END | disposition home or self-care (01) | LOC: LAB 09:51 | PROVIDERS: ATTEND Internal Medicine | DX: Z12.11 Encounter for screening for malignant neoplasm of colon (principal); E11.9 Type 2 diabetes mellitus without complications; G62.9 Polyneuropathy, unspecified; N18.2 Chronic kidney disease, stage 2 (mild) | CPT/HCPCS: 82270 ==

== ENCOUNTER → 2024-11-23 | Outpatient (CLI) | payer MEDICARE, OTHER ==
[2024-11-23 11:38] LABS: Creatinine, Urine 54.29 mg/dL (30.0-125.0)
[2024-11-23 11:42] LABS: Micro Albumin < 3.0 mg/L (<30.0); Microalb/Creat Ratio, Urine < 5.00
== END | disposition home or self-care (01) ==
LOC: LAB 10:17
PROVIDERS: ATTEND Internal Medicine
DX: E11.9 Type 2 diabetes mellitus without complications (principal); E78.5 Hyperlipidemia, unspecified
CPT/HCPCS: 36415; 82043; 82570; 83036; 84443

== ENCOUNTER → 2025-02-23 | Outpatient (CLI) | payer MEDICARE, OTHER ==
[2025-02-23 10:50] LABS: Alanine Aminotransferase 23 U/L (7-40); Albumin 4.8 g/dL (3.2-4.8); Alkaline Phosphatase 57 U/L (46-116); Anion Gap 10 (5-15); Aspartate Aminotransferase 20 U/L (13-40); BUN/Creatinine Ratio 29.6 (10.0-20.0); Bilirubin, Total 0.4 mg/dL (0.2-1.0); Blood Urea Nitrogen 29 mg/dL (9-23); Calcium 10.4 mg/dL (8.7-10.4); Carbon Dioxide 27 mmol/L (20-31); Chloride 106 mmol/L (98-107); Glucose 121 mg/dL (74-106); Potassium 4.8 mmol/L (3.5-5.1); Sodium 143 mmol/L (136-145); Total Protein 7.4 g/dL (5.7-8.2)
== END | disposition home or self-care (01) ==
LOC: LAB 09:33
PROVIDERS: ATTEND Internal Medicine
DX: E11.9 Type 2 diabetes mellitus without complications (principal); E78.5 Hyperlipidemia, unspecified
CPT/HCPCS: 36415; 80053; 82043; 82570; 83036

== ENCOUNTER → 2025-03-08 | Outpatient (CLI) | payer MEDICARE, OTHER ==
[2025-03-08 08:00] LABS: Anion Gap 9 (5-15); Calcium 10.2 mg/dL (8.7-10.4); Carbon Dioxide 27 mmol/L (20-31); Chloride 105 mmol/L (98-107); Sodium 141 mmol/L (136-145)
[2025-03-08 08:06] LABS: BUN/Creatinine Ratio 29.4 (10.0-20.0)
[2025-03-08 08:09] LABS: Blood Urea Nitrogen 30 mg/dL (9-23); Glucose 110 mg/dL (74-106)
== END | disposition home or self-care (01) ==
LOC: LAB 07:24
PROVIDERS: ATTEND Internal Medicine
DX: I10 Essential (primary) hypertension (principal); E11.21 Type 2 diabetes mellitus with diabetic nephropathy
CPT/HCPCS: 36415; 80048

== ENCOUNTER 2025-05-31 10:51 | Outpatient (CLI) | payer MEDICARE, OTHER ==
[2025-05-31 12:16] LABS: Microalb/Creat Ratio, Urine 58.0
[2025-05-31 12:19] LABS: Alanine Aminotransferase 28 U/L (7-40); Albumin 4.5 g/dL (3.2-4.8); Alkaline Phosphatase 54 U/L (46-116); Anion Gap 11 (5-15); BUN/Creatinine Ratio 27.7 (10.0-20.0); Carbon Dioxide 26 mmol/L (20-31); Chloride 102 mmol/L (98-107); Potassium 4.4 mmol/L (3.5-5.1); Sodium 139 mmol/L (136-145); Total Protein 6.8 g/dL (5.7-8.2)
[2025-05-31 12:20] LABS: Bilirubin, Total 0.4 mg/dL (0.2-1.0); Blood Urea Nitrogen 28 mg/dL (9-23); Calcium 10.5 mg/dL (8.7-10.4); Glucose 110 mg/dL (74-106)
== END 2025-05-31 17:00 | disposition home or self-care (01) ==
LOC: LAB 10:51
PROVIDERS: ATTEND Internal Medicine
DX: E11.21 Type 2 diabetes mellitus with diabetic nephropathy (principal)
CPT/HCPCS: 36415; 80053; 82043; 82570

== ENCOUNTER 2025-08-31 06:33 | Outpatient (CLI) | payer MEDICARE, OTHER ==
[2025-08-31 07:09] LABS: Alanine Aminotransferase 20 U/L (7-40); Albumin 4.3 g/dL (3.2-4.8); Alkaline Phosphatase 58 U/L (46-116); Anion Gap 11 (5-15); BUN/Creatinine Ratio 23.3 (10.0-20.0); Bilirubin, Total 0.5 mg/dL (0.2-1.0); Blood Urea Nitrogen 21 mg/dL (9-23); Calcium 9.3 mg/dL (8.7-10.4); Carbon Dioxide 24 mmol/L (20-31); Chloride 103 mmol/L (98-107); Cholesterol 112 mg/dL (< 200); HDL Cholesterol 40 mg/dL (40-59); Potassium 4.6 mmol/L (3.5-5.1); Sodium 138 mmol/L (136-145); Total Protein 6.9 g/dL (5.7-8.2)
[2025-08-31 07:11] LABS: Glucose 112 mg/dL (74-106); Triglycerides 159 mg/dL (< 150)
== END 2025-08-31 17:00 | disposition home or self-care (01) ==
LOC: LAB 06:33
PROVIDERS: ATTEND Internal Medicine
DX: E11.22 Type 2 diabetes mellitus with diabetic chronic kidney disease (principal); N18.31 Chronic kidney disease, stage 3a; E11.9 Type 2 diabetes mellitus without complications
CPT/HCPCS: 36415; 80053; 80061; 83036; 83970